=== PATIENT | male | born 1945 | race Caucasian/White ===

== ENCOUNTER 2016-11-11 21:34 | Emergency (ER) | payer MEDICARE, BC ==
[2016-11-12] MEDS ORDERED: TETRACAINE HCL 0.5% OPH SOLN 2 ML ONE (00:25)
[2016-11-12] MEDS ORDERED: KETOROLAC TROMETHAMINE 0.45% 4 DROP/0.4 ML DROPERETTE OD ONE (00:39)
[2016-11-12] MEDS ORDERED: TETRACAINE HCL 0.5% OPH SOLN 2 ML OS ONE (00:39)
[2016-11-12] MEDS ORDERED: CIPROFLOXACIN HCL 0.3% OPH SOLN 2.5 ML OD ONE (00:39)
--- NOTE | 2016-11-12 00:39 | ER Document Report ---
ED Foreign Body - General Chief Complaint: Foreign Body in Eye Stated Complaint: RIGHT EYE PAIN Time Seen by Provider: 11/12/16 00:20 Mode of Arrival: Ambulatory Information source: Patient Notes: Patient is a 70-year-old male who presents to the ER today for something possibly stuck in his right eye after he was trimming bushes outside earlier today and thinks he got some debris in his eye. He states that he tried some eye flushes that he bought from the drugstore which did not help. TRAVEL OUTSIDE OF THE [place] IN LAST 30 DAYS: No - Related Data Allergies/Adverse Reactions: No Known Allergies Allergy (Verified 11/11/16 21:48) Past Medical History - General Information source: Patient - Social History Smoking Status: Unknown if Ever Smoked Family History: Reviewed & Not Pertinent Patient has suicidal ideation: No Patient has homicidal ideation: No - Past Medical History Cardiac Medical History: Reports: Hx Hypertension Renal/ Medical History: Denies: Hx Peritoneal Dialysis - Immunizations Immunizations up to date: Yes Review of Systems - Review of Systems Constitutional: No symptoms reported EENT: See HPI Cardiovascular: No symptoms reported Respiratory: No symptoms reported Gastrointestinal: No symptoms reported Genitourinary: No symptoms reported Male Genitourinary: No symptoms reported Musculoskeletal: No symptoms reported Skin: No symptoms reported Hematologic/Lymphatic: No symptoms reported Neurological/Psychological: No symptoms reported Physical Exam - Vital signs Vitals: Temp Pulse Resp BP Pulse Ox 98.2 F 94 14 136/74 H 96 11/11/16 21:49 11/11/16 21:49 11/11/16 21:49 11/11/16 21:49 11/11/16 21:49 - Notes Notes: PHYSICAL EXAMINATION: GENERAL: Well-appearing and in no acute distress. HEAD: Atraumatic, normocephalic. EYES: Right eye with ointment and watery discharge, fluorescein stain reveals small debris over iris, Pupils equal round and reactive to light, extraocular movements intact, sclera anicteric NECK: Normal range of motion, supple without lymphadenopathy LUNGS: CTAB and equal. No wheezes rales or rhonchi. HEART: Regular rate and rhythm without murmurs EXTREMITIES: Normal range of motion, no pitting edema. No cyanosis. NEUROLOGICAL: Cranial nerves grossly intact. Normal sensory/motor exams. PSYCH: Normal mood, normal affect. SKIN: Warm, Dry, normal turgor, no rashes or lesions noted Course - Vital Signs Vital signs: Temp Pulse Resp BP Pulse Ox 98.2 F 94 14 136/74 H 96 11/11/16 21:49 11/11/16 21:49 11/11/16 21:49 11/11/16 21:49 11/11/16 21:49 Procedures - Eye Procedure Right Time completed: 00:42 Eye Irrigated w/ Saline (ccs): 50 Foreign body removal: Right Alcaine Drops Administered: Yes Fluorescein applied: Right Antibiotic Oinment/Drps Admin: Right eye Slit lamp used: No Notes: 11/12/16 00:42 Debris flushed out, for seen stay was repeated and no debris was seen Discharge - Discharge Clinical Impression: Foreign body, eye Qualifiers: Encounter type: initial encounter Laterality: right Qualified Code(s): T15.91XA - Foreign body on external eye, part unspecified, right eye, initial encounter Condition: Stable Disposition: HOME, SELF-CARE Instructions: Conjunctival Foreign Body ([facility]) Additional Instructions: Return immediately for any new or worsening symptoms. Follow up with eye doctor, call tomorrow to make followup appointment. Prescriptions: Ketorolac Tromethamine 0.45% [Acuvail 0.45% Oph Soln 0.4 ml/Dropperette] 1 drop OD BID #12 droperette
[2016-11-12 01:01] VITALS: BP 121/76
== END 2016-11-12 00:55 | disposition home or self-care (01) ==
LOC: ER 21:34
PROC: 08C0XZZ Extirpation of Matter from Right Eye, External Approach (ICD-10-PCS; principal; 2016-11-11)
DX: T15.91XA Foreign body on external eye, part unspecified, right eye, initial encounter (principal); X58.XXXA Exposure to other specified factors, initial encounter
CPT/HCPCS: 99283; A9270; J3490